=== PATIENT | female | born 1985 | race Caucasian/White ===

== ENCOUNTER 2018-02-24 22:35 | Emergency (ER) | payer SELFPAY ==
--- NOTE | 2018-02-24 22:44 | EDPHY ---
H & P Stated Complaint: back pain, right leg numbness-fainted, seizures Time Seen by Provider: 02/24/18 22:44 HPI/ROS: HPI CHIEF COMPLAINT: Back pain, syncope HISTORY OF PRESENT ILLNESS: Patient very pleasant 32-year-old female she has a history of asthma she is otherwise healthy, presents emergency room after she had a syncopal episode. Patient states she was standing in her kitchen and had some low back pain. States she has had back pain per pretty much all week mainly paravertebral on the lumbar spine right-sided right CVA region. She was pressing very hard on this side states she was standing in her kitchen pressing very hard on her back when she got lightheaded she went to her bedroom and the next thing she remembers she woke up on the ground. Denies any bowel or bladder incontinence, denies biting of her tongue, denies headache, denies chest pain or shortness of breath. Denies palpitations. She presents emergency room by private vehicle. She states she has never had a syncopal episode like this before. Past Medical History: Asthma, acne Past Surgical History: Denies significant surgical history Social History: Smokes marijuana, denies illicit drugs or alcohol or tobacco. Family History: Noncontributory ROS REVIEW OF SYSTEMS: A comprehensive 10 point review of systems is otherwise negative aside from elements mentioned in the history of present illness. Exam Constitutional appears well nontoxic no acute distress triage nursing summary reviewed, vital signs reviewed, awake/alert. Eyes normal conjunctivae and sclera, EOMI, PERRLA. HENT normal inspection, atraumatic, moist mucus membranes, no epistaxis, neck supple/ no meningismus, no raccoon eyes. Respiratory clear to auscultation bilaterally, normal breath sounds, no respiratory distress, no wheezing. Cardiovascular rate normal, regular rhythm, no murmur, no edema, distal pulses normal. Gastrointestinal soft, non-tender, no rebound, no guarding, normal bowel sounds, no distension, no pulsatile mass. Genitourinary very mild right CVA tenderness. No midline lumbar back pain Musculoskeletal no midline lumbar back pain, mild pain paravertebral lumbar region. no midline vertebral tenderness, full range of motion, no calf swelling , no tenderness of extremities, no meningismus, good pulses, neurovascularly intact. Skin pink, warm, & dry, no rash, skin atraumatic. Neurologic awake, alert and oriented x 3, AAOx3, moves all 4 extremities equally, motor intact, sensory intact, CN II-XII intact, normal cerebellar, normal vision, normal speech. Psychiatric normal mood/affect. Heme/Lymph/Immune no lymphadenopathy. Differential Diagnosis: Includes but is not limited to in a particular order vasovagal syncope, orthostatic syncope, dehydration, electrolyte disturbance, cardiac arrhythmia, infection, UTI, pyelonephritis, , doubt acute coronary syndrome, doubt PE. Medical Decision Making: Plan for this patient workup for syncope IV establishment blood draw, IV fluid bolus 1 L normal saline, EKG, cardiac marker , chest x-ray and lumbar spine x-ray. Re-evaluation: EKG interpretation by me on record in [employer] system. Impression time of EKG 2303, sinus rhythm rate of 59 otherwise no signs of cardiac arrhythmia no signs of acute ischemia no ST elevation no ST depression no significant T-wave abnormalities. No prolonged intervals. Unremarkable EKG. X-rays reviewed lumbar spine and chest x-ray unremarkable for acute process. Patient's EKG is unremarkable for cardiac arrhythmia or ischemia. Patient's blood work is reassuring she has negative D-dimer normal troponin. She has received IV fluids here. Vital signs are stable. She does feel well she denies any complaints and is eager for discharge. Unclear etiology of his syncopal episode could be due to vasovagal syncope due to pain. I have encouraged to stay well-hydrated drink lots of fluids. Additionally if she has another syncopal episode she should return to the emergency room she understands. At time of discharge she appears well nontoxic no acute distress she has stable vital signs. Source: Patient - Personal History LMP (Females 10-55): 15-21 Days Ago Current Tetanus Diphtheria and Acellular Pertussis (TDAP): Unsure - Medical/Surgical History Hx Asthma: Yes Hx Chronic Respiratory Disease: No Hx Diabetes: No Hx Cardiac Disease: No Hx Renal Disease: No Hx Cirrhosis: No Hx Alcoholism: No Hx HIV/AIDS: No Hx Splenectomy or Spleen Trauma: No Other PMH: gallbladder surgery, asthma - Social History Smoking Status: Never smoked Constitutional: Initial Vital Signs Temperature (C) 36.8 C 02/24/18 22:38 Heart Rate 68 02/24/18 22:38 Respiratory Rate 20 02/24/18 22:38 Blood Pressure 128/71 H 02/24/18 22:38 O2 Sat (%) 99 02/24/18 22:38 O2 Delivery Mode Room Air Allergies/Adverse Reactions: No Known Allergies Allergy (Unverified 02/24/18 22:37) Home Medications: Medication Instructions Recorded Advair 100/50 (*) 02/24/18 Albuterol 02/24/18 Medical Decision Making - Diagnostics Imaging Results: Imaging Impressions Chest X-Ray 02/24/18 22:52 Impression: Normal portable chest. Lumbar Spine X-Ray 02/24/18 22:52 Impression:Moderate intervertebral disk height loss at L5-S1. No fracture or spondylolisthesis. - Data Points Laboratory Results: Laboratory Results 02/24/18 23:00 02/24/18 23:00 02/24/18 02/24/18 02/24/18 23:06 23:00 23:00 WBC RBC Hgb Hct MCV MCH MCHC RDW Plt Count MPV Neut % (Auto) Lymph % (Auto) [place] % (Auto) Eos % (Auto) Baso % (Auto) Nucleat RBC Rel Count Absolute Neuts (auto) Absolute Lymphs (auto) Absolute Monos (auto) Absolute Eos (auto) Absolute Basos (auto) Absolute Nucleated RBC Immature Gran % Immature Gran # PT INR APTT D-Dimer Sodium 137 mEq/L mEq/L (135-145) Potassium 3.9 mEq/L mEq/L (3.3-5.0) Chloride 101 mEq/L mEq/L (97-110) Carbon Dioxide 25 mEq/l mEq/l (22-31) Anion Gap 11 mEq/L mEq/L (8-16) BUN 15 mg/dL mg/dL (7-23) Creatinine 0.7 mg/dL mg/dL (0.6-1.0) Estimated GFR > 60 Glucose 104 mg/dL H mg/dL (70-100) Calcium 9.1 mg/dL mg/dL (8.5-10.4) Magnesium 1.8 mg/dL mg/dL (1.6-2.3) Total Bilirubin 0.3 mg/dL mg/dL (0.1-1.4) Conjugated Bilirubin 0.3 mg/dL mg/dL (0.0-0.5) Unconjugated Bilirubin 0.0 mg/dL mg/dL (0.0-1.1) AST 20 IU/L IU/L (14-46) ALT 34 IU/L IU/L (9-52) Alkaline Phosphatase 48 IU/L IU/L (38-126) POC Troponin I 0.00 ng/mL ng/mL (0.00-0.08) Total Protein 6.9 g/dL g/dL (6.3-8.2) Albumin 4.1 g/dL g/dL (3.5-5.0) Beta HCG, Qual NEGATIVE 02/24/18 02/24/18 23:00 23:00 WBC 9.18 10^3/uL 10^3/uL (3.80-9.50) RBC 4.16 10^6/uL L 10^6/uL (4.18-5.33) Hgb 11.6 g/dL L g/dL (12.6-16.3) Hct 34.9 % L % (38.0-47.0) MCV 83.9 fL fL (81.5-99.8) MCH 27.9 pg pg (27.9-34.1) MCHC 33.2 g/dL g/dL (32.4-36.7) RDW 15.7 % H % (11.5-15.2) Plt Count 257 10^3/uL 10^3/uL (150-400) MPV 9.4 fL fL (8.7-11.7) Neut % (Auto) 50.4 % % (39.3-74.2) Lymph % (Auto) 32.6 % % (15.0-45.0) [place] % (Auto) 8.9 % % (4.5-13.0) Eos % (Auto) 7.0 % % (0.6-7.6) Baso % (Auto) 0.8 % % (0.3-1.7) Nucleat RBC Rel Count 0.0 % % (0.0-0.2) Absolute Neuts (auto) 4.63 10^3/uL 10^3/uL (1.70-6.50) Absolute Lymphs (auto) 2.99 10^3/uL 10^3/uL (1.00-3.00) Absolute Monos (auto) 0.82 10^3/uL H 10^3/uL (0.30-0.80) Absolute Eos (auto) 0.64 10^3/uL H 10^3/uL (0.03-0.40) Absolute Basos (auto) 0.07 10^3/uL 10^3/uL (0.02-0.10) Absolute Nucleated RBC 0.00 10^3/uL 10^3/uL (0-0.01) Immature Gran % 0.3 % % (0.0-1.1) Immature Gran # 0.03 10^3/uL 10^3/uL (0.00-0.10) PT 12.9 SEC SEC (12.0-15.0) INR 0.95 (0.83-1.16) APTT 24.7 SEC SEC (23.0-38.0) D-Dimer < 0.27 ug/mLFEU ug/mLFEU (0.00-0.50) Sodium Potassium Chloride Carbon Dioxide Anion Gap BUN Creatinine Estimated GFR Glucose Calcium Magnesium Total Bilirubin Conjugated Bilirubin Unconjugated Bilirubin AST ALT Alkaline Phosphatase POC Troponin I Total Protein Albumin Beta HCG, Qual Medications Given: Discontinued Medications Sodium Chloride (Ns) 1,000 mls @ 0 mls/hr IV EDNOW ONE; Wide Open PRN Reason: Protocol Stop: 02/24/18 22:53 Last Admin: 02/24/18 23:12 Dose: 1,000 mls Point of Care Test Results: Chemistry 02/24/18 23:06 POC Troponin I 0.00 ng/mL ng/mL (0.00-0.08) Departure - Departure Disposition: Home, Routine, Self-Care Clinical Impression: Syncope Qualifiers: Syncope type: vasovagal syncope Qualified Code(s): R55 - Syncope and collapse Condition: Good Instructions: Syncope (ED) Additional Instructions: 1. Drink lots of fluids stay well-hydrated 2. If you develop another syncopal episode or pass out or chest pain or shortness of breath return emergency room. Referrals: NONE *PRIMARY CARE P,. [Primary Care Provider] - As per Instructions
[2018-02-24] MEDS ORDERED: NS 1,000 ML IV ONE (22:52)
--- NOTE | 2018-02-24 23:05 | CPEKG ---
Heart Rate: 59 RR Interval: 1017 P-R Interval: 128 QRSD Interval: 92 QT Interval: 380 QTC Interval: 377 P [place]: 50 QRS [place]: 94 T Wave [place]: 43 EKG Severity - BORDERLINE ECG - EKG Impression: SINUS RHYTHM EKG Impression: CONSIDER RIGHT VENTRICULAR HYPERTROPHY Electronically Signed By: Ricardo Faustin 25-Feb-2018 05:44:25
[2018-02-24 23:09] LABS: PLATELET COUNT 257 10^3/uL (150-400)
[2018-02-24 23:17] LABS: INR 0.95 (0.83-1.16); PROTIME(PATIENT) 12.9 SEC (12.0-15.0)
[2018-02-25 00:05] VITALS: BP 103/66
[2018-02-25] MEDS ORDERED: CEPHALEXIN 500MG PREPACK#4 BTL TAKEHOME ONE (00:24)
[2018-02-25] MEDS ORDERED: CEPHALEXIN 500 MG CAP PO ONE (00:24)
== END 2018-02-25 00:48 | disposition home or self-care (01) ==
DX: R55 Syncope and collapse (principal); J45.909 Unspecified asthma, uncomplicated; E86.9 Volume depletion, unspecified
CPT/HCPCS: 84484-PO

== ENCOUNTER 2018-12-03 17:56 | Emergency (ER) | payer OTHER ==
[2018-12-03] MEDS ORDERED: AMOXICILLIN/CLAVULANATE POT 875/125 MG TAB PO ONE (18:19)
--- NOTE | 2018-12-03 18:24 | EDPHY ---
H & P Stated Complaint: Pt pressed on R supra-orbital sinus 20min [employer], has pnfl periorbital swellin Time Seen by Provider: 12/03/18 18:13 HPI/ROS: CHIEF COMPLAINT: Sinusitis HISTORY OF PRESENT ILLNESS: Patient is a 33-year-old female who has had congested right sinuses for the last month. The no fevers. Hazy yellowish mucus discharge. She has been using Afrin daily to help control her symptoms. No fevers. No headache. No vision changes or hearing changes. Today after using Afrin she was pressing on her eyebrow to help control the pressure and afterwards she noticed swelling in her right eyelid and nasal bridge. No erythema or warmth. No pain with extraocular movement. No recent trauma. Severity: Moderate Modifying factors: Gradually worsening REVIEW OF SYSTEMS: Constitutional: denies: chills, fever, recent illness, recent injury EENTM: See HPI Respiratory: denies: cough, shortness of breath Cardiac: denies: chest pain, irregular heart rate, lightheadedness, palpitations Gastrointestinal/Abdominal: denies: abdominal pain, diarrhea, nausea, vomiting, blood streaked stools Genitourinary: denies: dysuria, frequency, hematuria, pain Musculoskeletal: denies: joint pain, muscle pain Skin: denies: lesions, rash, jaundice, bruising Neurological: denies: headache, numbness, paresthesia, tingling, dizziness, weakness Hematologic/Lymphatic: denies: blood clots, easy bleeding, easy bruising Immunologic/allergic: denies: HIV/AIDS, transplant 10 systems reviewed and negative except as noted EXAM: GENERAL: Well-appearing, well-nourished and in no acute distress. HEAD: Atraumatic, normocephalic. EYES: Pupils equal round and reactive to light, extraocular movements intact, sclera anicteric, conjunctiva are normal. No proptosis. No pain with extraocular movement. Mild edema to right upper eyelid and bridge of nose. No crepitus. No erythema or drainage. ENT: TMs normal, right sinus congestion, tender maxillary and frontal sinuses, oropharynx clear without exudates. Moist mucous membranes. NECK: Normal range of motion, supple without lymphadenopathy or JVD. LUNGS: Breath sounds clear to auscultation bilaterally and equal. No wheezes rales or rhonchi. HEART: Regular rate and rhythm without murmurs, rubs or gallops. ABDOMEN: Soft, nontender, normoactive bowel sounds. No guarding, no rebound. No masses appreciated. BACK: No CVA tenderness, no spinal tenderness, step-offs or deformities EXTREMITIES: Normal range of motion, no pitting or edema. No clubbing or cyanosis. NEUROLOGICAL: Cranial nerves II through XII grossly intact. Normal speech, normal gait. 5/5 strength, normal movement in all extremities, normal sensation , normal reflexes PSYCH: Normal mood, normal affect. SKIN: See above Warm, dry, normal turgor, no visible rashes or lesions. Source: Patient Exam Limitations: No limitations - Personal History Current Tetanus/Diphtheria Vaccine: Yes - Medical/Surgical History Hx Asthma: Yes Hx Chronic Respiratory Disease: No Hx Diabetes: No Hx Cardiac Disease: No Hx Renal Disease: No Hx Cirrhosis: No Hx Alcoholism: No Hx HIV/AIDS: No Hx Splenectomy or Spleen Trauma: No Other PMH: gallbladder surgery, asthma, nasal bone Fx - Social History Smoking Status: Never smoked Constitutional: Initial Vital Signs Temperature (C) 36.8 C 12/03/18 18:00 Heart Rate 64 12/03/18 18:00 Respiratory Rate 16 12/03/18 18:00 Blood Pressure 122/86 H 12/03/18 18:00 O2 Sat (%) 100 12/03/18 18:00 O2 Delivery Mode Room Air Allergies/Adverse Reactions: No Known Allergies Allergy (Verified 12/03/18 18:00) Home Medications: Medication Instructions Recorded Advair 100/50 (*) 02/24/18 Albuterol 02/24/18 Cephalexin [Keflex] 500 mg PO Q6H #28 cap 02/25/18 Amoxicillin/Clavulanate Pot 875 mg PO BID #14 tab 12/03/18 [Augmentin 875Mg] diphenhydrAMINE [Benadryl 50 MG 50 mg PO Q4-6PRN PRN #30 cap 12/03/18 (OTC)] predniSONE 60 mg PO DAILY #9 tab 12/03/18 Medical Decision Making - Diagnostics Imaging: Discussed imaging studies w/ call center support consultant Radiologist ED Course/Re-evaluation: The patient is a healthy 33-year-old female who is been dealing with sinusitis symptoms for 30 days. Today she had some swelling of her right eye and nasal bridge that appears to be lymphatic blockage but I cannot rule out venous sinus thrombosis. She does have a mild headache. No overt neurologic deficits. Will order CT to evaluate. Does not appear to be orbital or periorbital cellulitis on exam. 7:30 p.[address]. we discussed the CT results. Patient and partner are reassured. She has been taking Sarika and Zyrtec for allergies as well. She states she is having some slight erythema to her skin after the CT contrast. Will administer prednisone. She took some Benadryl 2 hr ago. Will administer 25 IV. Will observe. 8:30 p.m. the patient has had slight worsening of her rash. No airway involvement. She does have some tingling of her lips. Because her symptoms seem to be worsening slightly will treat without epinephrine was well as the another 25 mg Benadryl as well H 2 noah. I suspect this is from the IV contrast. She has had penicillin several times in the past without difficulty. 9:10 p.m. the patient is doing he police better. She is eager to go home. She does not wish to have further observation. I advised her to continue taking Benadryl as needed or other antihistamines. Also will write her short prescription burst of prednisone. Also the antibiotics Differential Diagnosis: Partial list of the Differential diagnosis considered include but were not limited to; sinusitis, cavernous sinus thrombosis, periorbital cellulitis and although unlikely based on the history and physical exam, I also considered abscess, meningitis, trauma. - Data Points Medications Given: Discontinued Medications Amoxicillin/Clavulanate Potassium (Augmentin 875mg) 875 mg PO EDNOW ONE PRN Reason: Protocol Stop: 12/03/18 18:20 Last Admin: 12/03/18 18:40 Dose: 875 mg Diphenhydramine HCl (Benadryl Injection) 25 mg IVP EDNOW ONE Stop: 12/03/18 19:38 Last Admin: 12/03/18 19:40 Dose: 25 mg Diphenhydramine HCl (Benadryl Injection) 25 mg IVP EDNOW ONE Stop: 12/03/18 20:34 Last Admin: 12/03/18 21:04 Dose: Not Given Epinephrine HCl (Epinephrine) 0.3 mg IM EDNOW ONE Stop: 12/03/18 20:34 Last Admin: 12/03/18 20:37 Dose: 0.3 mg Prednisone (Prednisone) 60 mg PO EDNOW ONE Stop: 12/03/18 19:38 Last Admin: 12/03/18 19:40 Dose: 60 mg Ranitidine HCl (Zantac) 50 mg IVP EDNOW ONE Stop: 12/03/18 20:34 Last Admin: 12/03/18 20:39 Dose: 50 mg Point of Care Test Results: Chemistry 12/03/18 18:58 POC Sodium 140 mEq/L mEq/L (135-145) POC Potassium 4.3 mEq/L mEq/L (3.3-5.0) POC Chloride 106 mEq/L mEq/L (97-110) POC Total CO2 17 mEq/L L mEq/L (22-31) POC BUN 7 mg/dL mg/dL (7-23) POC Creatinine 0.8 mg/dL mg/dL (0.6-1.0) POC Glucose 88 mg/dL mg/dL (70-100) ISTAT H&H 12/03/18 18:58 POC Hgb 13.3 gm/dL gm/dL (12.6-16.3) POC Hct 39 % % (38-47) Departure - Departure Disposition: Home, Routine, Self-Care Clinical Impression: Acute bacterial sinusitis Allergic reaction Qualifiers: Encounter type: initial encounter Qualified Code(s): T78.40XA - Allergy, unspecified, initial encounter Condition: Fair Instructions: Sinusitis (ED), General Allergic Reaction (ED) Referrals: Emani Griggs MD [Primary Care Provider] - 2-3 days, if not improved Adair Murray MD [Medical Doctor] - 3-4 days, if not improved Prescriptions: Amoxicillin/Clavulanate Pot [Augmentin 875Mg] 875 mg PO BID #14 tab diphenhydrAMINE [Benadryl 50 MG (OTC)] 50 mg PO Q4-6PRN PRN #30 cap PRN Reason: Itching predniSONE 60 mg PO DAILY #9 tab
[2018-12-03] MEDS ORDERED: IOPAMIDOL (ISOVUE-300) 100 ML BTL ONE (19:00)
[2018-12-03] MEDS ORDERED: predniSONE 20 MG TAB PO ONE (19:37)
[2018-12-03] MEDS ORDERED: EPINEPHrine 1 MG/ML INJ IM ONE (20:33)
[2018-12-03] MEDS ORDERED: RANITIDINE 50 MG/2 ML VIAL IVP ONE (20:33)
[2018-12-03 21:37] VITALS: BP 129/73
== END 2018-12-03 21:37 | disposition home or self-care (01) ==
DX: J01.90 Acute sinusitis, unspecified (principal); T78.40XA Allergy, unspecified, initial encounter
CPT/HCPCS: 70470; 96372; 96374; 96375; 99285; J0171; J1200; J2780; J7512; Q9967; 82435-PO; 82565-PO; 82947-PO; 84132-PO; 84295-PO; 84520-PO; 85014-ER